=== PATIENT | female | born 1980 | race American Indian/Alaskan Native ===

== ENCOUNTER 2024-07-29 12:28 | Outpatient (REF) | payer BC, SELFPAY ==
[2024-07-29 15:35] LABS: COVID-19 PCR Negative (Negative); Influenza A PCR Negative (Negative); Influenza B PCR Negative (Negative); RSV PCR Negative (Negative)
[2024-07-29 15:58] LABS: Source Nasopharynx
== END 2024-07-29 12:29 | disposition home or self-care (01) ==
LOC: LBN 12:28
PROVIDERS: Visit Provider Physician Assistant Medical
DX: J06.9 Acute upper respiratory infection, unspecified (principal)
CPT/HCPCS: 87637; 87070